=== PATIENT | female | born 2005 | race Caucasian/White ===

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

== ENCOUNTER → 2023-05-02 15:00 | Outpatient (BNVA) | payer MEDICAID, SELFPAY | PROVIDERS: PCP Family Medicine; Visit Provider Family Medicine | DX: F33.1 Major depressive disorder, recurrent, moderate (principal); R63.5 Abnormal weight gain | CPT/HCPCS: 80053; 84443 ==

== ENCOUNTER → 2023-10-21 15:15 | Outpatient (BNVA) | payer OTHER, SELFPAY | PROVIDERS: PCP Nurse Practitioner Family; Visit Provider Obstetrics & Gynecology | DX: Z01.419 Encounter for gynecological examination (general) (routine) without abnormal findings (principal) | CPT/HCPCS: 87624 ==

== ENCOUNTER 2023-11-12 07:35 | Oncology outpatient (recurring) (ONCR) | payer OTHER, SELFPAY ==
--- NOTE | 2023-11-12 07:44 | PC.NURSE ---
patient reporting her pain level is a 3/10 with her current migraine.
[2023-11-12 07:49] VITALS: BP 105/75; PULSE 70; RESP 16; TEMP 36.6; O2SAT 98
[2023-11-12] MEDS: ondansetron 2 mg/ML SDV 2 mL 4 MG IVP ×2 (08:01→11:46)
[2023-11-12] MEDS: diphenhydrAMINE 50 mg/mL SDV 1mL 25 MG IVP (08:04)
[2023-11-12] MEDS: dihydroergotamine 1 mg/mL Inj 0.5 MG IVP ×4 (08:14→11:02)
--- NOTE | 2023-11-12 08:41 | PC.NURSE ---
patient reports her pain is 5/[address] M for Dr. Hunt to return call.
[2023-11-12] MEDS: METHYLPREDNISOLONE SOD SUCC IV (09:24)
[2023-11-12] MEDS: SODIUM CHLORIDE 0.9% IV (09:24)
--- NOTE | 2023-11-12 09:54 | PC.NURSE ---
Patient reports pain 4/10 with migraine following 250 mg solumedrol infusion. Next dose of DHE given per Dr. Hunt order.
--- NOTE | 2023-11-12 10:06 | PC.NURSE ---
1000- Patient reports headache pain as aching with throbbing as decreased to 3/10 prior to second injection. - Michael Robin
--- NOTE | 2023-11-12 10:40 | PC.NURSE ---
1030-Patient reports headache pain as aching, central located across forehead, rates at 2/10. Patient is drowsy and sleepy. Will give dose #3/6 DHE- ROSE Robin
--- NOTE | 2023-11-12 11:06 | PC.NURSE ---
1054 Patient reports aching headache as 2/10 frontal. Slight nausea, no vomiting. Continue with dose 07/05. -Michael Robin
--- NOTE | 2023-11-12 11:10 | PC.NURSE ---
1108- Patient instructed to move around slowly. SLow position changes. Gets up freely with assistance from family with her to use bathroom. -ROSE Robin
--- NOTE | 2023-11-12 11:35 | PC.NURSE ---
1125- Call to Dr. Hunt per ROSE Peña. Patient refuses to continue DHE protocol due to nausea. Per Dr. Hunt, Zofran 4mg orders and Depacon 500mg IVP. -rose moraes.
[2023-11-12] MEDS: valproic acid 500 mg/5 mL SDV IV (11:47)
--- NOTE | 2023-11-12 12:00 | PC.NURSE ---
1147- Unable to push IV Depacon 500mg/ 5ml over 5 minutes, given slowly over 10 minutes due to vein sensitivity, added to saline 5 ml. Patient tolerated slow IV push. Headache prior to push rated 2/10. Zofran eased nausea. Reassess in 15min at 1115. - ROSE Robin
[2023-11-12] MEDS: valproic acid inj 500 MG in sodium chloride 0.9% 50 ML 660 MG IV (12:25)
--- NOTE | 2023-11-12 12:26 | PC.NURSE ---
1220- Reports headache as aching frontal sides of neck 2/10. Second dose of Depacon 500mg IV given. Will recheck in 15 minutes post infusion. - ROSE Robin
[2023-11-12] MEDS: ketorolac 30 mg/mL INJ IVP (13:04)
[2023-11-12 13:45] VITALS: BP 123/76; PULSE 65; RESP 16; TEMP 36.2; O2SAT 97
--- NOTE | 2023-11-12 13:45 | PC.NURSE ---
patient reporting her pain level is 1/10, patient declines wanting any further treatment and ready for discharge.
== END 2023-11-30 23:55 | disposition home or self-care (01) ==
PROVIDERS: PCP Nurse Practitioner Family; Visit Provider Specialist
DX: G43.711 Chronic migraine without aura, intractable, with status migrainosus (principal); Z79.1 Long term (current) use of non-steroidal anti-inflammatories (NSAID)
CPT/HCPCS: 96365; 96375; 96376; J1110; J1200; J1885; J2405; J2919; J3490; J7050

== ENCOUNTER → 2023-12-27 13:31 | Outpatient (BNVA) | payer OTHER, SELFPAY | PROVIDERS: PCP Nurse Practitioner Family; Visit Provider Nurse Practitioner Psychiatric/Mental Health | DX: Z79.899 Other long term (current) drug therapy (principal) | CPT/HCPCS: 80053; 80061; 82306; 84443 ==

== ENCOUNTER → 2024-01-13 15:15 | Outpatient (BNVA) | payer OTHER, SELFPAY | PROVIDERS: PCP Nurse Practitioner Family; Visit Provider Internal Medicine Cardiovascular Disease | DX: Z79.899 Other long term (current) drug therapy (principal) | CPT/HCPCS: 93005 ==

== ENCOUNTER → 2024-03-05 15:25 | Outpatient (BNVA) | payer OTHER, SELFPAY | PROVIDERS: PCP Nurse Practitioner Family; Visit Provider Nurse Practitioner Psychiatric/Mental Health | DX: Z79.899 Other long term (current) drug therapy (principal) | CPT/HCPCS: 83036 ==

== ENCOUNTER 2024-03-23 07:23 | Emergency (ER) | payer OTHER, SELFPAY ==
[2024-03-23 07:42] VITALS: BP 133/82; PULSE 79; RESP 18; TEMP 36.4; O2SAT 100; BMI 37.8
--- NOTE | 2024-03-23 07:47 | W.ED.HA ---
HPI - Headache General: Chief Complaint: Headache Stated Complaint: headache 3 days Time Seen by Provider: 03/23/24 07:25 History of Present Illness: 19-year-old female presents emergency room with complaint of headache for the last 3 days. She has a known history of migraines she is seeing neurology for this in the past. They had talked to her about Botox but she has not done any yet. She was taken off of all of the previous medication she was on propranolol and Topamax and started on Emgality. Her last dose was on March 09 of this year. She has previously been on triptans in the past but has not used any for this headache or any recently. She is having photophobia and photophobia and some nausea. Associated symptoms: Deny chest pain, fever(s) or rash Related Data Previous Rx's Medication Instructions Recorded galcanezumab-gnlm 120 mg/mL 120 mg SUBCUT ONCE #1 mL 11/19/23 subcutaneous syringe (Emgality) aripiprazole 5 mg tablet (Abilify) 5 mg PO .noon #30 tabs 01/31/24 lisdexamfetamine 30 mg capsule 30 mg PO QAM 30 days #30 caps 03/04/24 Allergies Allergy/AdvReac Type Severity Reaction Status Date / Time No Known Allergies Allergy Verified 03/23/24 11:24 Review of Systems Const: Denies: fever(s) or chills Card: Denies: chest pain Resp: Denies: dyspnea GI: Denies: abdominal pain : Denies: dysuria, urinary frequency or urinary urgency Musc: Denies: neck pain or back pain Skin/Breast: Denies: rash PFSH ED PFSH: Medical History ADHD (attention deficit hyperactivity disorder), inattentive type Binge-eating disorder, severe Cyclothymic disorder Psychiatric care BMI greater than 30 Bereavement mother 07/08/2020 Generalized anxiety disorder Post-traumatic stress disorder, chronic Family History Mother Clotting disorder Cardiomyopathy, Onset Age: 33 at 33 Grandmother Diabetes Stroke Grandfather Cardiomyopathy Denies family history of Colon cancer Ovarian cancer Prostate cancer Breast cancer Hypertension Uterine cancer Thyroid disease Social History Smoking and tobacco/nicotine status: never used tobacco/nicotine Female Reproductive History: Spontaneous abortions: No Physical Exam Const: COMMON NORMALS: no acute distress GENERAL APPEARANCE: cooperative and comfortable ORIENTATION/CONSCIOUSNESS: Yes awake, Yes oriented to person, Yes oriented to place and Yes oriented to time HENMT: COMMON NORMALS: normocephalic, atraumatic and hearing grossly normal bilaterally HEAD & SCALP: normocephalic and atraumatic Resp: COMMON NORMALS: normal respiratory effort, No retractions, No use of accessory muscles and clear to auscultation bilaterally AUSCULTATION: clear to auscultation bilaterally Cardio: COMMON NORMALS: regular rate, regular rhythm and No murmurs present (Cardio) RATE: regular rate RHYTHM: regular rhythm GI: COMMON NORMALS: Soft to palpation and No hepatosplenomegaly present AUSCULTATION: Yes normoactive bowel sounds PALPATION: Yes Soft to palpation, No Tenderness to palpation present (GI), No Guarding due to palpation present (GI) and Yes No hepatosplenomegaly present Extremity: COMMON NORMALS: normal to inspection, capillary refill normal, no clubbing, cyanosis or edema, no calf tenderness and no pedal edema Neuro: SENSORIUM/ORIENTATION: Yes oriented to person, Yes oriented to place and Yes oriented to time Skin: COMMON NORMALS: no rashes or lesions noted GENERAL SKIN EXAM: no rashes or lesions noted Course Vital Signs: Vital signs: Vital Signs Temperature 97.6 F 03/23/24 07:42 Pulse Rate 80 03/23/24 10:26 Respiratory Rate 18 03/23/24 08:36 Blood Pressure 129/80 03/23/24 10:26 Pulse Oximetry 98 03/23/24 10:26 Oxygen Delivery Me thod Room Air 03/23/24 08:36 MDM - Headache Medical Decision Making Headache improved with medications given including valproic acid. Discharge patient home continue current medication she has follow-up with neurology. They can make adjustments for prophylaxis and rescue medicines for her headaches. Medical Records I reviewed the patient's medical records. No radiology studies performed this visit Discharge Plan Discharge Patient Disposition: Home Clinical Impression: Migraine Condition: Stable Prescriptions: No Action Emgality Syringe 120 mg/mL syringe 120 mg SUBCUT ONCE Qty: 1 5RF aripiprazole [Abilify] 5 mg tablet 5 mg PO .noon Qty: 30 3RF Rx Instructions: Take one tablet at noon lisdexamfetamine 30 mg capsule 30 mg PO QAM 30 Days Qty: 30 0RF Discharge Orders: Discharge ED (Routine); Ordered 03/23/24 Ordered By: Byron Henley Referrals: Maria Ines Villanueva FNP [Primary Care Provider] - Patient Instructions: Opioid Safety, Pain Management Activity Restrictions/Additional Instructions: Thank you for choosing [facility] for your healthcare needs today. It is very important that you follow up as instructed or that you return to the Emergency Department should you have concerns or if your condition changes or worsens in any way. You are seen in the emergency room for headache did respond well to medications given. Recommend you continue to follow-up with neurology to work through options for headache prophylaxis and rescue medications for breakthrough headaches. 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
[2024-03-23] MEDS: dexamethasone 10 mg/mL INJ IVP (07:56)
[2024-03-23] MEDS: ketorolac 30 mg/mL INJ IVP (07:58)
[2024-03-23] MEDS: prochlorperazine 10 mg/2 mL Inj IVP (07:59)
[2024-03-23] MEDS: valproic acid inj 500 MG in sodium chloride 0.9% 50 ML 55 MG IV (08:00)
[2024-03-23 08:36] VITALS: BP 139/72; PULSE 76; RESP 18; O2SAT 97
[2024-03-23 10:26] VITALS: BP 129/80; PULSE 80; O2SAT 98
== END 2024-03-23 10:27 | disposition home or self-care (01) ==
PROVIDERS: Emergency Provider Family Medicine; PCP Nurse Practitioner Family
DX: G43.909 Migraine, unspecified, not intractable, without status migrainosus (principal)
CPT/HCPCS: 36415; 96365; 99284; J0780; J1100; J1885; J3490

== ENCOUNTER 2024-11-20 15:15 | Outpatient (CLI) | payer OTHER, SELFPAY ==
[2024-11-20 15:56] LABS: Alanine Aminotransferase 25 U/L (0-33); Albumin Level 4.8 g/dL (3.5-5.2); Alkaline Phosphatase 59 U/L (35-105); Anion Gap 17.0 (5-19); Aspartate Amino Transferase 17 U/L (0-32); Blood Urea Nitrogen 9 mg/dL (6-20); Calcium 9.3 mg/dL (8.5-10.5); Carbon Dioxide 24 mmol/L (22-29); Chloride 102 mmol/L (98-107); Cholesterol 167 mg/dL (0-200); Globulin 2.9 g/dL (1.3-4.6); Glucose 87 mg/dL (65-115); HDL Cholesterol 82 mg/dL (60-100); Osmolality Calculated 286 mOsm/kg (285-295); Potassium 4.0 mmol/L (3.5-5.1); Sodium 139 mmol/L (136-145); Total Protein 7.7 g/dL (6.6-8.7); Triglycerides 65 mg/dL (0-150)
[2024-11-20 16:23] LABS: Estmated Average Glucose 94; Hemoglobin A1C 4.9 % (4.0-6.0)
== END 2024-11-20 15:16 | disposition home or self-care (01) ==
LOC: LAB 15:17
PROVIDERS: Visit Provider Nurse Practitioner Psychiatric/Mental Health
DX: Z79.899 Other long term (current) drug therapy (principal)
CPT/HCPCS: 36415; 80053; 80061; 82306; 83036